=== PATIENT | female | born 1945 | race Caucasian/White ===

== ENCOUNTER 2017-07-26 10:07 | Day surgery (SDC) | payer OTHER ==
[~2017-07-26] VITALS: Ht 172.7 cm; Wt 81.6 kg
[~2017-07-26 10:07] MED LIST: ACETAMINOPHEN 325 MG TAB PO PRN; ASPI325T24 PO; BSS with VANC/TOB/EPI for EYE CASES IR ONE; CALC600T57 PO; CO Q100C10 PO; CORACAP6 PO; CYCLOPENTOLATE 2% OPHTH SOLN 2ML BTL OS ONE; FIBE625T PO; FOLI400T PO; LIDOCAINE 3.5 % 1ML OPHTH TOPICAL GEL OU ONE; MULT1TAB42 PO; OFLOXACIN 0.3 % (OCUFLOX) OPTH SOL 5ML OS ONE; OMEG100011 PO; PHENYLEPHRINE 2.5% OPHTH SOL 2ML OS ONE; PROPARACAINE 0.5% OPHTH SOL 15ML OS PRN; TROPICAMIDE 1% OPHTH SOLN 2ML OS ONE; VITA-122 PO; VITA100072 PO
[2017-07-26] MEDS ORDERED: LR 500 ML IV ONE (10:15)
[2017-07-26] MEDS ORDERED: MIDAZOLAM INJ 2 MG/2 ML VIAL (J2250) As Ordered ONE (12:38)
[2017-07-26] MEDS ORDERED: HEALON DUET (HEALON 10MG/ML 0.55ML & HEALON ENDOCOAT 30MG/ML 0.85ML) As Ordered ONE ×2 (12:53→13:15)
[2017-07-26] MEDS ORDERED: POVIDONE-IODINE 5% OPHTH PREP SOL 30ML As Ordered ONE (12:53)
[2017-07-26] MEDS ORDERED: LIDOCAINE 1% SDV 5 ML VIAL As Ordered ONE (12:54)
[2017-07-26] MEDS ORDERED: AcetaZOLAMIDE 500 MG ER CAP PO ONE (14:00)
[2017-07-26] MEDS ORDERED: TRIMETHOBENZAMIDE 300 MG CAP PO PRN (14:00)
[2017-07-26] MEDS ORDERED: KETOROLAC 0.5% OPHTH SOLN XX ONE (14:00)
[2017-07-26 14:30] VITALS: BP 116/70
--- NOTE | 2017-07-27 10:23 | RO ---
DATE OF PROCEDURE: 07/26/2017 PREOPERATIVE DIAGNOSES: Cataract left eye. Glaucoma left eye. POSTOPERATIVE DIAGNOSES: Cataract left eye. Glaucoma left eye. PROCEDURE: Femtosecond laser with phacoemulsification, intraocular lens implantation, placement of ECP and iStent in the left eye. Intraocular lens power used was Hoya, model 250, power 15.5 diopter. SURGEON: Jerrell Richards MD POWDER PRESS OPERATOR: None. ANESTHESIA: COMPLICATIONS: None. PROCEDURE IN DETAIL: Patient was brought to the operating room, laid in supine position. The eye was prepped and draped in a sterile fashion for ophthalmic surgery and a lid speculum was placed. Patient was brought under the laser and after adequate suction and patient interface placement OCT images were then reviewed and laser was activated. Capsulorhexis lens fragmentation primary, secondary corneal incision and arcuate incisions were made as planned. Suction was then released. Patient was brought to the operating room, laid in supine position. The eye was prepped and draped in a sterile fashion for ophthalmic surgery and the lid speculum was placed. Corneal incisions were opened. Capsulorrhexis removed after placement of the EndoCoat into the anterior chamber. Phacoemulsification was then done in a divide and conquer method, followed by aspiration of the cortical material. Healon was then placed in the capsular bag, intraocular lens inserted. Healon was then placed the in the ciliary sulcus and with the help of the video screen and an EndoProbe ciliary processes were visualized and endocyclophotocoagulation was done at 0.25 mV at 280 degrees with good results noted by the shrinking of the ciliary processes. Healon was then placed into the anterior chamber to visualize the inferonasal trabecular meshwork. Patient's head turned away from the surgeon, microscope turned towards the surgeon under high magnification with the help of the Gonio lens. The iStent was placed and with some difficulty because there was a lot of blood reflux. After this, excess viscoelastic and some heme was aspirated. Wound was hydrated. Lid speculum removed. Patient returned to recovery room in stable condition. Also, with cefuroxime was given.
== END 2017-07-26 14:47 | disposition home or self-care (01) ==
LOC: M SDC 10:07
PROVIDERS: ATTEND Ophthalmology
DX: H26.9 Unspecified cataract (principal); H40.9 Unspecified glaucoma; I48.91 Unspecified atrial fibrillation; N39.0 Urinary tract infection, site not specified; N30.01 Acute cystitis with hematuria; J30.9 Allergic rhinitis, unspecified; E78.5 Hyperlipidemia, unspecified; Z88.0 Allergy status to penicillin; Z79.899 Other long term (current) drug therapy; Z79.82 Long term (current) use of aspirin; Z85.3 Personal history of malignant neoplasm of breast; Z92.21 Personal history of antineoplastic chemotherapy; Z92.3 Personal history of irradiation
CPT/HCPCS: 66711; 66984; C1783; J2250; V2632

== ENCOUNTER → 2018-09-21 | Outpatient (REF) | payer OTHER ==
[2018-09-21 19:19] LABS: AMORPHOUS SEDIMENT LARGE (NEGATIVE); APPEARANCE, URINE CLOUDY (CLEAR); BACTERIA, URINE AUTO NEGATIVE (NEGATIVE); BILIRUBIN, URINE AUTO NEGATIVE (NEGATIVE); BLOOD, URINE BLOOD NEGATIVE (NEGATIVE); COLOR, URINE YELLOW (YELLOW); GLUCOSE, URINE (UA) AUTO NEGATIVE (NEGATIVE); KETONE, URINE AUTO NEGATIVE (NEGATIVE); LEUKOCYTE ESTERASE, URINE AUTO TRACE (NEGATIVE); MUCUS, URINE SMALL (NEGATIVE); NITRITE, URINE AUTO NEGATIVE (NEGATIVE); PROTEIN, URINE AUTO NEGATIVE (NEGATIVE); RBC, URINE AUTO 3 /HPF (0-3); SPECIFIC GRAVITY URINE AUTO 1.014 (1.002-1.035); SQUAMOUS EPITHELIAL CELL UR AU 0 /HPF (0-6); UROBILINOGEN, URINE AUTO 0.2 mg/dL (0.0-2.0); WBC, URINE AUTO 7 /HPF (0-3)
== END ==
LOC: M SMT 17:15
DX: N39.0 Urinary tract infection, site not specified (principal)
CPT/HCPCS: 81001

== ENCOUNTER → 2018-09-27 | Outpatient (CLI) | payer OTHER ==
[~2018-09-27] MED LIST changes: -ACETAMINOPHEN 325 MG TAB PO PRN; -ASPI325T24 PO; +ASPI325T25 PO; -BSS with VANC/TOB/EPI for EYE CASES IR ONE; -CYCLOPENTOLATE 2% OPHTH SOLN 2ML BTL OS ONE; -LIDOCAINE 3.5 % 1ML OPHTH TOPICAL GEL OU ONE; +METO1TAB32 PO; -OFLOXACIN 0.3 % (OCUFLOX) OPTH SOL 5ML OS ONE; -PHENYLEPHRINE 2.5% OPHTH SOL 2ML OS ONE; -PROPARACAINE 0.5% OPHTH SOL 15ML OS PRN; -TROPICAMIDE 1% OPHTH SOLN 2ML OS ONE; +XARE20TA PO
--- NOTE | 2018-09-27 17:58 | REP ---
Clinical: Recurrent urinary tract infection. Technique: Real time banda scale ultrasound examination using curved array transducer. Findings: Bladder is under distended but grossly normal in appearance. The bilateral kidneys are normal in reniform shape and echogenicity without hydronephrosis, nephrolithiasis, obvious cystic or renal mass lesion. Right kidney measures 9.5 x 4.3 x 4.1 cm. Left kidney measures 11.7 x 5.3 x 5.3 cm and partial duplication versus column of Valentin cannot be excluded. Impression: Essentially normal appearance of the bilateral kidneys. Electronically Signed by Jorge Luis Huthcins MD 09/27/2018 05:50 P
== END ==
LOC: M RAD 13:03
PROVIDERS: ATTEND Nurse Practitioner Family
DX: Z87.440 Personal history of urinary (tract) infections (principal)

== ENCOUNTER → 2018-10-13 | Outpatient (REF) | payer MEDICARE ==
[2018-10-13 18:51] LABS: AMORPHOUS SEDIMENT MODERATE (NEGATIVE); APPEARANCE, URINE CLOUDY (CLEAR); BACTERIA, URINE AUTO 1+ (NEGATIVE); BILIRUBIN, URINE AUTO NEGATIVE (NEGATIVE); BLOOD, URINE BLOOD NEGATIVE (NEGATIVE); COLOR, URINE AMBER (YELLOW); GLUCOSE, URINE (UA) AUTO NEGATIVE (NEGATIVE); KETONE, URINE AUTO NEGATIVE (NEGATIVE); LEUKOCYTE ESTERASE, URINE AUTO 1+ (NEGATIVE); MUCUS, URINE SMALL (NEGATIVE); NITRITE, URINE AUTO NEGATIVE (NEGATIVE); PROTEIN, URINE AUTO 1+ mg/dL (NEGATIVE); RBC, URINE AUTO 3 /HPF (0-3); SPECIFIC GRAVITY URINE AUTO 1.023 (1.002-1.035); SQUAMOUS EPITHELIAL CELL UR AU 6 /HPF (0-6); WBC, URINE AUTO 25 /HPF (0-3)
== END ==
LOC: M SMT 17:05
PROVIDERS: ATTEND Nurse Practitioner Family
DX: N39.0 Urinary tract infection, site not specified (principal)

== ENCOUNTER → 2018-10-16 | Outpatient (REF) | payer MEDICARE ==
[2018-10-16 19:22] LABS: APPEARANCE, URINE MANUAL HAZY (CLEAR); COLOR, URINE MANUAL YELLOW (YELLOW)
[2018-10-16 19:23] LABS: PROTEIN, URINE MANUAL NEGATIVE (NEGATIVE)
[2018-10-16 19:24] LABS: BILIRUBIN, URINE MANUAL NEGATIVE (NEGATIVE); BLOOD URINE MANUAL TRACE (NEGATIVE); GLUCOSE, URINE (UA) MANUAL NEGATIVE (NEGATIVE); KETONE, URINE MANUAL NEGATIVE (NEGATIVE); LEUKOCYTE ESTERASE, URINE MAN NEGATIVE (NEGATIVE); NITRITE, URINE MANUAL NEGATIVE (NEGATIVE); RBC, URINE 0-1 /hpf (0-3); SQUAMOUS EPITHELIAL CELL URINE SMALL AMOUNT /hpf (SMALL AMT); UROBILINOGEN, URINE MANUAL NORMAL (NORMAL); WBC, URINE 0-1 /hpf (0-3)
[2018-10-16 19:25] LABS: BACTERIA, URINE LARGE AMOUNT; HYALINE CAST, URINE NONE SEEN /lpf (0-1)
== END ==
LOC: M SMT 16:46
PROVIDERS: ATTEND Nurse Practitioner Family
DX: N39.0 Urinary tract infection, site not specified (principal)

== ENCOUNTER → 2018-12-05 | Outpatient (REF) | payer MEDICARE | LOC: M SFHCADAM 15:27 | PROVIDERS: ATTEND Specialist | DX: Z53.9 Procedure and treatment not carried out, unspecified reason (principal); N39.0 Urinary tract infection, site not specified ==

== ENCOUNTER → 2018-12-06 | Outpatient (REF) | payer MEDICARE ==
[2018-12-06 20:07] LABS: BACTERIA, URINE AUTO 2+ (NEGATIVE); CALCIUM OXALATE CRYSTALS SMALL; MUCUS, URINE SMALL (NEGATIVE); RBC, URINE AUTO 20 /HPF (0-3); SQUAMOUS EPITHELIAL CELL UR AU 2 /HPF (0-6); TRANSITIONAL EPITHELIAL AUTO <1 /HPF; WBC, URINE AUTO TNTC /HPF (0-3)
== END ==
LOC: M SFHCADAM 19:31
PROVIDERS: ATTEND Specialist
DX: N39.0 Urinary tract infection, site not specified (principal)

== ENCOUNTER → 2019-01-05 | Outpatient (REF) | payer MEDICARE | LOC: M SMT 17:04 | PROVIDERS: ATTEND Nurse Practitioner Women's Health | DX: N39.0 Urinary tract infection, site not specified (principal) ==

== ENCOUNTER → 2019-06-29 | Outpatient (CLI) | payer MEDICARE ==
[~2019-06-29] MED LIST changes: +ALBU8.5H INH; +ASPI-255 PO; -ASPI325T25 PO; +ATOR1TAB19 PO; +FLUTISP NARES; +LATA0.0015 OU; +METH-855 PO; +VITA100018 PO; -VITA100072 PO
[2019-06-29 14:08] LABS: CALCIUM LEVEL 9.9 MG/DL (8.8-10.2); CREATININE FOR GFR 1.02 MG/DL (0.55-1.30); GLOMERULAR FILTRATION RATE 56.1 (>39); POTASSIUM SERUM 4.8 MEQ/L (3.5-5.1)
== END ==
LOC: M SMT 10:52
PROVIDERS: ATTEND Specialist
DX: N39.0 Urinary tract infection, site not specified (principal); Q64.31 Congenital bladder neck obstruction
CPT/HCPCS: 36415; 51798; 80048; G0463

== ENCOUNTER → 2019-07-04 | Outpatient (CLI) | payer MEDICARE ==
[~2019-07-04] MED LIST changes: -ALBU8.5H INH; -ATOR1TAB19 PO; -FLUTISP NARES; -LATA0.0015 OU; -METH-855 PO
--- NOTE | 2019-07-05 02:21 | REP ---
Clinical: Recurrent urinary tract infection. Technique: Real time banda scale ultrasound examination using curved array transducer. Findings: Bilateral kidneys are normal in contour, echogenicity, and reniform shape without hydronephrosis, nephrolithiasis, cystic or renal mass lesion. No perinephric fluid collection. Right kidney appears minimally atrophic as compared to the left kidney and measures 9.3 x 3.4 x 3.3 cm. Left kidney measures 11.3 x 4.6 x 4.8 cm. Bladder is under distended and incompletely evaluated. Impression: Mild asymmetric size to the kidneys (left greater than right). Otherwise grossly unremarkable examination. Electronically Signed by Jorge Luis Hutchins MD 07/05/2019 02:13 A
== END ==
LOC: M RAD 15:07
PROVIDERS: ATTEND Specialist
DX: N39.0 Urinary tract infection, site not specified (principal)

== ENCOUNTER 2019-07-18 14:36 | Observation (INO) | payer MEDICARE ==
[~2019-07-18] VITALS: Ht 172.7 cm; Wt 82.4 kg
[2019-07-18] MEDS ORDERED: FLUTISP NARES (14:52)
[2019-07-18] MEDS ORDERED: ALBU8.5H INH (14:52)
[2019-07-18] MEDS ORDERED: LATA0.0015 OU (14:52)
--- NOTE | 2019-07-18 15:26 | REP ---
CT brain without contrast: History: Syncope. No comparison brain CT study. Findings: Preliminary digital fountain brush assembler radiograph is unremarkable. The bony calvarium is intact. No scalp hematoma or skull fracture is seen. There is some vascular calcification in the distal carotid arteries bilaterally. The visualized paranasal sinuses are clear. No intraorbital abnormality is appreciated. There is moderate generalized atrophy. There are areas of periventricular hypointensity visible bilaterally in the supratentorial brain consistent with small vessel atherosclerotic changes. There is no evidence of acute infarct or hemorrhage. No mass, extra-axial fluid collection, or midline shift is seen. Impression: Generalized atrophy, small vessel changes, and vascular calcification. No acute intracranial abnormality. Electronically Signed by Camilo Martínez MD 07/18/2019 03:56 P
--- NOTE | 2019-07-18 15:27 | REP ---
PA and lateral chest: Comparison is 08/05/2015. The lung garcia are clear and unchanged. There is bilateral apical pleural scarring. This is unchanged. Cardiac size is upper normal. There is pectus excavatum with the heart displaced posteriorly in the chest on the lateral view. This is unchanged. The ivanna, mediastinum, skeletal structures are unchanged. Impression: There are chronic stable findings as described. No acute cardiopulmonary changes. Electronically Signed by Devin Gaspar MD 07/18/2019 03:19 P
[2019-07-18 15:34] LABS: BASO # 0.1 10^3/uL (0.0-0.2); BASO % 0.7 % (0.0-1.0); EOS # 0.1 10^3/uL (0.0-0.5); EOS % 1.6 % (0.0-3.0); HEMATOCRIT 39.8 % (36.0-47.0); HEMOGLOBIN 13.3 g/dl (12.0-15.5); LYMPH # 1.1 10^3/uL (1.5-5.0); LYMPH % 16.2 % (24.0-44.0); MEAN CORPUSCULAR HGB CONC 33.4 g/dl (32.0-36.5); MEAN CORPUSCULAR VOLUME 104.7 fl (80.0-96.0); MONO # 0.6 10^3/uL (0.0-0.8); MONO % 7.9 % (0.0-5.0); NEUTROPHILS # 5.1 10^3/uL (1.5-8.5); NEUTROPHILS % 73.2 % (36.0-66.0); PLATELET COUNT, AUTOMATED 263 10^3/uL (150-450); WHITE BLOOD COUNT 6.9 10^3/uL (4.0-10.0)
[2019-07-18 15:57] LABS: INR 1.08; PROTHROMBIN TIME 13.7 SECONDS (11.8-14.0)
[2019-07-18 15:58] LABS: PARTIAL THROMBOPLASTIN TIME 27.7 SECONDS (25.0-38.4)
[2019-07-18 16:06] LABS: BLOOD UREA NITROGEN 23 MG/DL (7-18); CALCIUM LEVEL 9.3 MG/DL (8.8-10.2); CARBON DIOXIDE LEVEL 27 MEQ/L (21-32); CHLORIDE LEVEL 107 MEQ/L (98-107); CK-MB VALUE MASS < 1.0 NG/ML (<3.6); CPK CREATINE PHOSPHOKINASE 48 U/L (26-192); FREE T4 1.09 NG/DL (0.76-1.46); GLOMERULAR FILTRATION RATE > 60.0 (>39); GLUCOSE, FASTING 109 MG/DL (70-100); MAGNESIUM LEVEL 2.4 MG/DL (1.8-2.4); MB/CK RELATIVE INDEX 2.08 (< OR =4); POTASSIUM SERUM 4.6 MEQ/L (3.5-5.1); SODIUM LEVEL 141 MEQ/L (136-145); TROPONIN I < 0.02 NG/ML (< 0.10)
[2019-07-18] MEDS ORDERED: LIDOCAINE W/EPINEPHRINE 1% 20ML VIAL SC ONE (17:00)
[2019-07-18] MEDS ORDERED: ATOR1TAB19 PO (17:42)
[2019-07-18] MEDS ORDERED: METH-855 PO (17:42)
[2019-07-18] MEDS ORDERED: ACETAMINOPHEN TAB 650MG DOSE (2X325MG) PO PRN (17:45)
[2019-07-18] MEDS ORDERED: FLUTICASONE PROP 0.05% NASAL SPRAY 16 GM (FLONASE) NARES PRN (19:30)
[2019-07-18 20:00] VITALS: BP 140/81
[2019-07-18] MEDS ORDERED: METOPROLOL SUCC *XL* 25MG TAB (TopROL *XL*) PO SCH (21:00)
[2019-07-18] MEDS ORDERED: ATORVASTATIN 5MG PER 1/2 TABLET PO SCH (21:00)
[2019-07-18] MEDS ORDERED: LATANOPROST 0.005% OPHTH SOLN 2.5 ML OU SCH (21:00)
[2019-07-18 21:39] VITALS: BP 140/81
[2019-07-18] MEDS: ENOXAPARIN 80 MG/0.8 ML SYRINGE (J1650) SC SCH (21:40)
--- NOTE | 2019-07-18 21:44 | HPEPDOC ---
General Date of Admission Jul 18, 2019 at 14:37 Date of Service: Jul 18, 2019 Chief Complaint The patient is a 74-year-old female admitted with a reason for visit of Syncope. Source: Patient, Family Exam Limitations: No limitations Timing/Duration: Day(s), Resolved prior to arrival Severity: Mild Associated Symptoms: Denies Symptoms History of Present Illness This is a 74-year-old female who sustained a syncopal event in the presence of her family. She apparently began to feel very hot and then sank to her knees. She did not lose full consciousness and she did not hit her head. She denies any chest pain, palpitations, diaphoresis, nausea, or dizziness. She states she once had such a spell in her 20s. Of interest, the patient is followed by a injection molding supervisor in [place]( Dr.Barbara Waldrop [phone]. The patient has a history of atrial fibrillation and she had been placed on anticoagulation with Xarelto. She had been on this for a few months. She stopped the medication a month or so ago because of expense. She has previously been on Coumadin but did not want to start that either. Home Medications Scheduled Atorvastatin Calcium (Atorvastatin Calcium) 10 Mg Tablet, 5 MG PO QHS, (Reported) Calcium Carbonate/Vitamin D3 (Calcium 600-Vit D3 200 Tablet) 1 Tab Tab, 1 TAB PO DAILY, (Reported) Cholecalciferol (Vitamin D3) (Vitamin D3) 1,000 Unit Tab, 1,000 UNIT PO DAILY, (Reported) Latanoprost/Pf (Latanoprost 0.005% Eye Drop) 7.5 Ml Drops, 1 DROP OU QHS, (Reported) Methenamine Hippurate (Methenamine Hippurate) 1 Gm Tablet, 1 GM PO BID, (Reported) Metoprolol Succinate (Metoprolol Succinate) 25 Mg Tab, 25 MG PO QHS, (Reported) Mv-Min/Iron/Folic/Calcium/Vitk (Women's Multivitamin Tablet) 1 Tab Tab, 1 TAB PO DAILY, (Reported) Rivaroxaban (Xarelto) 20 Mg Tab, 20 MG PO DAILY, (Reported) PT HAS NOT HAD IN 1 MONTH DUE TO COST Scheduled PRN Albuterol Sulfate (Albuterol Sulfate Hfa) 8.5 Gm Hfa.aer.ad, 2 PUFFS INH Q4H PRN for SHORTNESS OF BREATH, (Reported) Fluticasone Propionate (Fluticasone Propionate) 16 Gm [place].susp, 2 SPRAYS NARES DAILY PRN for NASAL CONGESTION, (Reported) Allergies Coded Allergies: Penicillins (Verified Allergy, Unknown, 07/18/19) Past Medical History Medical History Chronic atrial fibrillation, polymyalgia rheumatica, dyslipidemia Surgical History Surgical history includes appendectomy, left lumpectomy with node dissection for breast cancer--this was then treated with chemotherapy and radiation, nonsurgical right arm fracture repair Family History There is family history of stroke, heart disease and Unspecified cancer Social History * Smoker: former Smoker (patient stopped smoking at the age of 28) Alcohol: Denies (the patient stopped alcohol use at the age of 28) Drugs: denies The patient is retired from [employer]. A-FIB/CHADSVASC A-FIB History Current/History of A-Fib/PAF?: Yes Current PO Anticoag Therapy: No Age/Risk Factor Scoring CHADSVASC: CHADSVASC Response (Comments) Value Age Risk Factor Age 65-74 years old 1 Gender Risk Factor Female 1 Hx of CHF No 0 Hx of HTN Yes 1 Hx of Stroke/TIA/or VTE No 0 Hx of Diabetes No 0 Hx of Vascular Disease No 0 Total 3 Treatment Treatment ordered: Heparin IV bridge Therapy Reason Anticoagulant not given: Patient refusal Review of Systems Other systems Review of 10 systems is otherwise negative except as stated in the brief presentation Physical Examination General Exam: Positive: Alert, No Acute Distress Eye Exam: Positive: PERRLA, Conjunctiva & lids normal, EOMI; Negative: Sclera icteric ENT Exam: Positive: Atraumatic, Mucous membr. moist/pink, Pharynx Normal Neck Exam: Positive: Supple; Negative: JVD, thyromegaly Chest Exam: Positive: Clear to auscultation, Normal air movement Heart Exam: Positive: Irregular Rhythm Telemetry: Positive: Atrial fibrillation (rate is controlled) Abdomen Exam: Positive: Normal bowel sounds, Soft; Negative: Tenderness, Hepatospenomegaly Extremity Exam: Positive: Normal pulses; Negative: Clubbing, Cyanosis, Edema Skin Exam: Positive: Nl turgor and temperature; Negative: Breakdown, Lesion Neuro Exam: Positive: Normal Gait, Normal Speech, Cranial Nerves 3-12 NL, Reflexes 2+ Psych Exam: Positive: Mental status NL, Mood NL, Oriented x 3 Vital Signs Vital Signs Date Time Temp Pulse Resp B/P (MAP) Pulse Ox O2 Delivery O2 Flow Rate FiO2 07/18/19 20:00 150/65 (93) 07/18/19 20:00 97.8 70 18 97 07/18/19 14:43 Room Air Laboratory Data Labs 24H Laboratory Tests 2 07/18/19 15:19: Immature Granulocyte % (Auto) 0.4, White Blood Count 6.9, Red Blood Count 3.80L, Hemoglobin 13.3, Hematocrit 39.8, Mean Corpuscular Volume 104.7H, Mean Corpuscular Hemoglobin 35.0H, Mean Corpuscular Hemoglobin Concent 33.4, Red Cell Distribution Width 12.5, Platelet Count 263, Neutrophils (%) (Auto) 73.2H, Lymphocytes (%) (Auto) 16.2L, Monocytes (%) (Auto) 7.9H, Eosinophils (%) (Auto) 1.6, Basophils (%) (Auto) 0.7, Neutrophils # (Auto) 5.1, Lymphocytes # (Auto) 1.1L, Monocytes # (Auto) 0.6, Eosinophils # (Auto) 0.1, Basophils # (Auto) 0.1, Nucleated Red Blood Cells % (auto) 0.0, Prothrombin Time 13.7, Prothromb Time International Ratio 1.08, Activated Partial Thromboplast Time 27.7, Anion Gap 7L, Glomerular Filtration Rate > 60.0, Blood Urea Nitrogen 23H, Creatinine 0.90, Sodium Level 141, Potassium Level 4.6, Chloride Level 107, Carbon Dioxide Level 27, Calcium Level 9.3, Total Creatine Kinase 48, Magnesium Level 2.4, Creatine Kinase MB < 1.0, Creatine Kinase MB Relative Index 2.08, Troponin I < 0.02, Thyr oid Stimulating Hormone (TSH) 1.770, Free Thyroxine 1.09 CBC/BMP Laboratory Tests 07/18/19 15:19 Red Blood Count 3.80 L, Mean Corpuscular Volume 104.7 H, Mean Corpuscular Hemoglobin 35.0 H, Mean Corpuscular Hemoglobin Concent 33.4, Red Cell Distribution Width 12.5, Neutrophils (%) (Auto) 73.2 H, Lymphocytes (%) (Auto) 16.2 L, Monocytes (%) (Auto) 7.9 H, Eosinophils (%) (Auto) 1.6, Basophils (%) (Auto) 0.7, Neutrophils # (Auto) 5.1, Lymphocytes # (Auto) 1.1 L, Monocytes # (A uto) 0.6, Eosinophils # (Auto) 0.1, Basophils # (Auto) 0.1, Calcium Level 9.3, Total Creatine Kinase 48 Assessment/Plan 1. Syncope. This was of extremely short duration. Associated symptoms are fully resolved and not anticipated to recur. Head CT was negative for any acute pathology. We will monitor her overnight on telemetry for possible dysrhythmia. Should also consider that she may have developed acute weakness due to her polymyalgia rheumatica. 2. Chronic atrial fibrillation. Patient remains in controlled rate. It is concerning that this event happened after she stopped her anticoagulation. Plans are to contact her injection molding supervisor to discuss acceptable alternative therapy. The patient does not want to take Coumadin. The patient is placed on observation status as we anticipate it will take less than 2 midnights to determine suitable management. Plan / VTE VTE Prophylaxis Ordered?: Yes (patient is currently on treatment dose Lovenox while we determine what her anticoagulation is to be) Plan Diet: Continue Current Activity: Continue Current Diagnostics: Repeat Labs in AM Anticipated Discharge: Home Advanced Directives: Health Care Proxy (HCP) (the patient's son is designated as her healthcare proxy. She is currently full CODE STATUS) TEETEE GORDON MD Jul 18, 2019 21:44
[2019-07-18] MEDS ORDERED: SLF 3 ML SYR IV PRN (22:15)
[2019-07-19] VITALS: BP 152/88
[2019-07-19 04:00] VITALS: BP 137/76
[2019-07-19] MEDS: SLF 3 ML SYR IV SCH ×2 (05:00→11:25)
[2019-07-19 05:27] LABS: HEMATOCRIT 39.3 % (36.0-47.0); HEMOGLOBIN 13.1 g/dl (12.0-15.5); MEAN CORPUSCULAR HEMOGLOBIN 34.7 pg (27.0-33.0); MEAN CORPUSCULAR HGB CONC 33.3 g/dl (32.0-36.5); PLATELET COUNT, AUTOMATED 244 10^3/uL (150-450); RED BLOOD COUNT 3.78 10^6/uL (4.00-5.40); WHITE BLOOD COUNT 7.5 10^3/uL (4.0-10.0)
[2019-07-19 05:48] LABS: BLOOD UREA NITROGEN 22 MG/DL (7-18); CALCIUM LEVEL 8.7 MG/DL (8.8-10.2); CARBON DIOXIDE LEVEL 24 MEQ/L (21-32); CHLORIDE LEVEL 109 MEQ/L (98-107); CREATININE FOR GFR 0.83 MG/DL (0.55-1.30); GLOMERULAR FILTRATION RATE > 60.0 (>39); GLUCOSE, FASTING 93 MG/DL (70-100); POTASSIUM SERUM 4.6 MEQ/L (3.5-5.1); SODIUM LEVEL 138 MEQ/L (136-145)
[2019-07-19 08:00] VITALS: BP 126/64
[2019-07-19] MEDS: ENOXAPARIN 80 MG/0.8 ML SYRINGE (J1650) SC SCH (08:36)
[2019-07-19] MEDS ORDERED: VITAMIN D 1,000 INTERNATIONAL UNITS TABLET PO SCH (09:00)
[2019-07-19] MEDS ORDERED: ASPIRIN 81 MG ENTERIC TAB PO SCH (09:00)
--- NOTE | 2019-07-19 10:47 | ECGEPIP ---
[facility] - ED Test Date: 2019-07-18 Pat Name: NIESHA MORALES Department: Room: - Gender: Female Inletter: VIC : 1945 Requested By: CALISTA Pederson Order Number: [id number] Reading MD: Mary Wisdom Measurements Intervals [place] Rate: 63 P: UT: 0 QRS: -26 QRSD: 98 T: 58 QT: 416 QTc: 427 Interpretive Statements ATRIAL FIBRILLATION BORDERLINE LEFT AXIS DEVIATION INCOMPLETE RIGHT BUNDLE BRANCH BLOCK MINIMAL ST DEPRESSION ABNORMAL RHYTHM ECG NO PRIOR Electronically Signed on 07-19-2019 10:47:40 EDT by Mary Wisdom
[2019-07-19 12:00] VITALS: BP_SYST 133; BP_SYST 150; BP_DIAS 64; BP_DIAS 98
[2019-07-19] MEDS ORDERED: XARE20TA PO (12:10)
== END 2019-07-19 15:25 | disposition home or self-care (01) ==
LOC: EDBD 14:36 → M ED 14:36 → M ED INP 14:37 → M PCU 20:10
PROVIDERS: ADMIT Internal Medicine; ATTEND Internal Medicine
DX: R55 Syncope and collapse (principal); I48.20 Chronic atrial fibrillation, unspecified; I10 Essential (primary) hypertension; E78.49 Other hyperlipidemia; Z85.3 Personal history of malignant neoplasm of breast; Z88.0 Allergy status to penicillin; Z87.891 Personal history of nicotine dependence; Z79.899 Other long term (current) drug therapy
CPT/HCPCS: 36415; 70450; 71046; 80048; 82550; 82553; 83735; 84439; 84443; 84484; 85025; 85027; 85610; 85730; 93005; 93041; 94760; 96372; 97161; 99285; G0378; J1650

== ENCOUNTER → 2019-10-15 | Outpatient (REF) | payer MEDICARE ==
[~2019-10-15] MED LIST changes: +ALBU8.5H INH; +ATOR1TAB19 PO; +FLUTISP NARES; +LATA0.0015 OU; +METH-855 PO
== END ==
LOC: M LABDRAW1 15:00
PROVIDERS: ATTEND Internal Medicine Pulmonary Disease
DX: R91.8 Other nonspecific abnormal finding of lung field (principal)

== ENCOUNTER → 2020-07-29 | Outpatient (REF) | payer MEDICARE ==
[2020-07-29 14:29] LABS: APPEARANCE, URINE CLEAR (CLEAR); BACTERIA, URINE AUTO NEGATIVE (NEGATIVE); BILIRUBIN, URINE AUTO NEGATIVE (NEGATIVE); BLOOD, URINE BLOOD NEGATIVE (NEGATIVE); COLOR, URINE YELLOW (YELLOW); GLUCOSE, URINE (UA) AUTO NEGATIVE (NEGATIVE); KETONE, URINE AUTO NEGATIVE (NEGATIVE); LEUKOCYTE ESTERASE, URINE AUTO TRACE (NEGATIVE); MUCUS, URINE SMALL (NEGATIVE); NITRITE, URINE AUTO NEGATIVE (NEGATIVE); PROTEIN, URINE AUTO NEGATIVE (NEGATIVE); RBC, URINE AUTO 2 /HPF (0-3); SPECIFIC GRAVITY URINE AUTO 1.013 (1.002-1.035); SQUAMOUS EPITHELIAL CELL UR AU 0 /HPF (0-6); UROBILINOGEN, URINE AUTO 0.2 mg/dL (0.0-2.0); WBC, URINE AUTO 32 /HPF (0-3)
== END ==
LOC: M SMT 13:32
PROVIDERS: ATTEND Nurse Practitioner Women's Health
DX: R30.0 Dysuria (principal)
CPT/HCPCS: 81001; 87088; 87186; G0463

== ENCOUNTER → 2021-03-23 | Outpatient (REF) | payer MEDICARE ==
[~2021-03-23] MED LIST changes: -FOLI400T PO; +FOLI400T13 PO
== END ==
LOC: M SFHCRHEU 10:11
PROVIDERS: ATTEND Internal Medicine
DX: M79.10 Myalgia, unspecified site (principal); M85.80 Other specified disorders of bone density and structure, unspecified site; R79.82 Elevated C-reactive protein (CRP)

== ENCOUNTER 2023-04-30 07:35 | Inpatient (IN) | payer MEDICARE ==
[~2023-04-30] VITALS: Ht 172.7 cm; Wt 86.8 kg
[~2023-04-30 07:35] MED LIST changes: +FLUT50SP17 NARES; -FLUTISP NARES
[2023-04-30] MEDS ORDERED: NS 1,000 ML IV SCH (08:00)
[2023-04-30 08:33] LABS: VENOUS BASE EXCESS -0.6 (-2.0-2.0); VENOUS HCO3 21.2 MMOL/L (23.0-27.0); VENOUS O2 SATURATION 98.7 % (60.0-80.0); VENOUS PARTIAL PRESSURE CO2 27.9 mmHg (38.0-50.0); VENOUS PARTIAL PRESSURE O2 135.3 mmHg (30.0-50.0); VENOUS PH 7.498 UNITS (7.330-7.430)
[2023-04-30 08:38] LABS: BASO # 0.1 10^3/uL (0.0-0.2); BASO % 0.8 % (0.0-1.0); EOS # 0.1 10^3/uL (0.0-0.5); EOS % 1.4 % (0.0-3.0); HEMATOCRIT 44.8 % (36.0-47.0); HEMOGLOBIN 14.2 g/dl (12.0-15.5); LYMPH # 1.5 10^3/uL (1.5-5.0); LYMPH % 15.8 % (24.0-44.0); MEAN CORPUSCULAR HEMOGLOBIN 33.7 pg (27.0-33.0); MEAN CORPUSCULAR HGB CONC 31.7 g/dl (32.0-36.5); MEAN CORPUSCULAR VOLUME 106.4 fl (80.0-96.0); MONO # 0.8 10^3/uL (0.0-0.8); MONO % 7.8 % (2.0-8.0); NEUTROPHILS # 7.1 10^3/uL (1.5-8.5); NEUTROPHILS % 73.8 % (36.0-66.0); PLATELET COUNT, AUTOMATED 225 10^3/uL (150-450); RED BLOOD COUNT 4.21 10^6/uL (4.00-5.40); WHITE BLOOD COUNT 9.6 10^3/uL (4.0-10.0)
[2023-04-30 09:42] LABS: ALBUMIN 3.3 G/DL (3.2-5.2); ALKALINE PHOSPHATASE 88 U/L (46-116); ALT/SGPT 46 U/L (7.0-40); AST/SGOT 47 U/L (<34); BILIRUBIN,DIRECT 0.2 MG/DL (<0.4); BILIRUBIN,TOTAL 0.6 MG/DL (0.3-1.2); BLOOD UREA NITROGEN 20 MG/DL (9-23); CALCIUM LEVEL 9.4 MG/DL (8.3-10.6); CARBON DIOXIDE LEVEL 25 MMOL/L (20-31); CHLORIDE LEVEL 101 MMOL/L (98-107); CREATININE FOR GFR 0.69 MG/DL (0.55-1.30); GLOMERULAR FILTRATION RATE > 60.0 (>32); GLUCOSE, FASTING 127 MG/DL (74-106); POTASSIUM SERUM 4.4 MMOL/L (3.5-5.1); SODIUM LEVEL 134 MMOL/L (136-145); TOTAL PROTEIN 7.1 G/DL (5.7-8.2)
[2023-04-30 09:44] LABS: OSMOLALITY SERUM 286 MOSM/KG (280-301); THYROID STIMULATING HORMONE 1.965 uIU/ML (0.55-4.78)
[2023-04-30] MEDS ORDERED: MED REC IN PROGRESS XX SCH (11:20)
[2023-04-30] MEDS ORDERED: METO1TAB32 PO (11:46)
[2023-04-30 12:00] VITALS: BP 161/74; O2SAT 96
[2023-04-30] MEDS ORDERED: HOME MED LIST COMPLETE! XX SCH (12:20)
[2023-04-30] MEDS ORDERED: ASPIRIN 81MG CHEW TABLET PO ONE (13:10)
[2023-04-30] MEDS: MIRALAX *UNIT DOSE* 17GM PACKET PO SCH (13:50)
[2023-04-30 14:00] VITALS: BP_SYST 106; BP_SYST 160; BP_DIAS 72; TEMP 99.6; O2SAT 96
[2023-04-30 16:20] VITALS: BP 159/77; TEMP 99; O2SAT 97
[2023-04-30] MEDS ORDERED: QUEtiapine FUMARATE 12.5 MG HALF-TAB PO PRN (20:00)
[2023-04-30 20:09] VITALS: BP 144/64; TEMP 97.8; O2SAT 96
[2023-04-30] MEDS: ATORVASTATIN 20 MG TAB PO SCH (20:34)
[2023-04-30] MEDS: APIXABAN 2.5 MG TAB (ELIQUIS) PO SCH (20:34)
[2023-04-30] MEDS: DOCUSATE SODIUM 100MG CAPSULE PO SCH (20:34)
[2023-04-30] MEDS: SENNA 8.6 MG TAB (SENOKOT) PO SCH (20:34)
[2023-04-30] MEDS ORDERED: ATORVASTATIN 20 MG TAB PO SCH (21:00)
[2023-05-01] VITALS (7 sets, daily range): BP systolic 111–152; BP diastolic 60–90; TEMP 96.2–97.8; O2SAT 95–98
[2023-05-01 06:18] LABS: BASO # 0.1 10^3/uL (0.0-0.2); BASO % 0.6 % (0.0-1.0); EOS # 0.3 10^3/uL (0.0-0.5); EOS % 2.8 % (0.0-3.0); HEMATOCRIT 38.3 % (36.0-47.0); HEMOGLOBIN 12.8 g/dl (12.0-15.5); LYMPH # 1.4 10^3/uL (1.5-5.0); LYMPH % 16.1 % (24.0-44.0); MEAN CORPUSCULAR HEMOGLOBIN 33.9 pg (27.0-33.0); MEAN CORPUSCULAR HGB CONC 33.4 g/dl (32.0-36.5); MEAN CORPUSCULAR VOLUME 101.3 fl (80.0-96.0); MONO # 0.8 10^3/uL (0.0-0.8); MONO % 9.4 % (2.0-8.0); NEUTROPHILS # 6.3 10^3/uL (1.5-8.5); NEUTROPHILS % 70.6 % (36.0-66.0); PLATELET COUNT, AUTOMATED 224 10^3/uL (150-450); RED BLOOD COUNT 3.78 10^6/uL (4.00-5.40); WHITE BLOOD COUNT 8.9 10^3/uL (4.0-10.0)
[2023-05-01 06:30] LABS: BLOOD UREA NITROGEN 16 MG/DL (9-23); CALCIUM LEVEL 8.6 MG/DL (8.3-10.6); CARBON DIOXIDE LEVEL 24 MMOL/L (20-31); CHLORIDE LEVEL 105 MMOL/L (98-107); CREATININE FOR GFR 0.67 MG/DL (0.55-1.30); GLOMERULAR FILTRATION RATE > 60.0 (>32); GLUCOSE, FASTING 120 MG/DL (74-106); POTASSIUM SERUM 4.1 MMOL/L (3.5-5.1); SODIUM LEVEL 137 MMOL/L (136-145)
[2023-05-01] MEDS: SENNA 8.6 MG TAB (SENOKOT) PO SCH ×2 (09:00→20:25)
[2023-05-01] MEDS: MIRALAX *UNIT DOSE* 17GM PACKET PO SCH (09:00)
[2023-05-01] MEDS: APIXABAN 2.5 MG TAB (ELIQUIS) PO SCH ×2 (09:03→20:44)
[2023-05-01] MEDS: ASPIRIN 81MG ENTERIC TABLET PO SCH (09:03)
[2023-05-01] MEDS: DOCUSATE SODIUM 100MG CAPSULE PO SCH ×2 (09:03→20:24)
[2023-05-01] MEDS: ATORVASTATIN 20 MG TAB PO SCH (20:45)
[2023-05-02 03:35] VITALS: BP 141/77; TEMP 96.5; O2SAT 96
[2023-05-02 05:11] LABS: BASO # 0.1 10^3/uL (0.0-0.2); BASO % 0.6 % (0.0-1.0); EOS # 0.2 10^3/uL (0.0-0.5); EOS % 2.6 % (0.0-3.0); HEMATOCRIT 38.2 % (36.0-47.0); HEMOGLOBIN 12.5 g/dl (12.0-15.5); LYMPH # 1.7 10^3/uL (1.5-5.0); MEAN CORPUSCULAR HEMOGLOBIN 33.5 pg (27.0-33.0); MEAN CORPUSCULAR HGB CONC 32.7 g/dl (32.0-36.5); MEAN CORPUSCULAR VOLUME 102.4 fl (80.0-96.0); MONO # 0.8 10^3/uL (0.0-0.8); MONO % 8.5 % (2.0-8.0); NEUTROPHILS # 6.6 10^3/uL (1.5-8.5); NEUTROPHILS % 69.8 % (36.0-66.0); PLATELET COUNT, AUTOMATED 235 10^3/uL (150-450); RED BLOOD COUNT 3.73 10^6/uL (4.00-5.40); WHITE BLOOD COUNT 9.4 10^3/uL (4.0-10.0)
[2023-05-02 05:24] LABS: BLOOD UREA NITROGEN 19 MG/DL (9-23); CALCIUM LEVEL 8.4 MG/DL (8.3-10.6); CARBON DIOXIDE LEVEL 23 MMOL/L (20-31); CHLORIDE LEVEL 104 MMOL/L (98-107); CREATININE FOR GFR 0.83 MG/DL (0.55-1.30); GLOMERULAR FILTRATION RATE > 60.0 (>32); GLUCOSE, FASTING 111 MG/DL (74-106); POTASSIUM SERUM 4.2 MMOL/L (3.5-5.1); SODIUM LEVEL 136 MMOL/L (136-145)
[2023-05-02 07:54] LABS: INR 1.16
[2023-05-02 07:55] LABS: PARTIAL THROMBOPLASTIN TIME 31.7 SECONDS (24.8-34.2)
[2023-05-02 08:00] VITALS: BP 138/88; TEMP 97.2; O2SAT 97
[2023-05-02] MEDS: MIRALAX *UNIT DOSE* 17GM PACKET PO SCH (09:00)
[2023-05-02] MEDS: SENNA 8.6 MG TAB (SENOKOT) PO SCH (09:13)
[2023-05-02] MEDS: ASPIRIN 81MG ENTERIC TABLET PO SCH (09:13)
[2023-05-02] MEDS: DOCUSATE SODIUM 100MG CAPSULE PO SCH (09:13)
[2023-05-02] MEDS: APIXABAN 5 MG TAB (ELIQUIS) PO SCH ×2 (09:14→20:10)
[2023-05-02] MEDS: LevoFLOXacin 750 MG TABLET PO SCH (10:32)
[2023-05-02] MEDS: METOPROLOL TART 12.5 MG PER 1/2 TAB PO SCH ×2 (10:32→20:11)
[2023-05-02 12:00] VITALS: BP 130/86; TEMP 97; O2SAT 97
[2023-05-02 19:19] VITALS: BP 143/75; TEMP 97.6; O2SAT 96
[2023-05-02] MEDS: ATORVASTATIN 20 MG TAB PO SCH (20:10)
[2023-05-02] MEDS: SENOKOT S TAB PO SCH (20:11)
[2023-05-02 20:34] VITALS: BP 136/72; TEMP 97.9; O2SAT 96
[2023-05-03] MEDS: LevoFLOXacin 750 MG TABLET PO SCH (05:03)
[2023-05-03 06:00] VITALS: BP 160/71; TEMP 97.7; O2SAT 92
[2023-05-03 06:38] LABS: BASO # 0.1 10^3/uL (0.0-0.2); BASO % 0.7 % (0.0-1.0); EOS # 0.3 10^3/uL (0.0-0.5); EOS % 2.8 % (0.0-3.0); HEMATOCRIT 38.8 % (36.0-47.0); HEMOGLOBIN 12.8 g/dl (12.0-15.5); LYMPH # 1.6 10^3/uL (1.5-5.0); LYMPH % 16.5 % (24.0-44.0); MEAN CORPUSCULAR HEMOGLOBIN 33.3 pg (27.0-33.0); MONO # 0.9 10^3/uL (0.0-0.8); MONO % 8.7 % (2.0-8.0); NEUTROPHILS # 6.9 10^3/uL (1.5-8.5); NEUTROPHILS % 70.7 % (36.0-66.0); PLATELET COUNT, AUTOMATED 260 10^3/uL (150-450); RED BLOOD COUNT 3.84 10^6/uL (4.00-5.40); WHITE BLOOD COUNT 9.7 10^3/uL (4.0-10.0)
[2023-05-03 06:57] LABS: BLOOD UREA NITROGEN 18 MG/DL (9-23); CALCIUM LEVEL 8.9 MG/DL (8.3-10.6); CARBON DIOXIDE LEVEL 24 MMOL/L (20-31); CHLORIDE LEVEL 103 MMOL/L (98-107); CREATININE FOR GFR 0.77 MG/DL (0.55-1.30); GLOMERULAR FILTRATION RATE > 60.0 (>32); GLUCOSE, FASTING 110 MG/DL (74-106); POTASSIUM SERUM 4.3 MMOL/L (3.5-5.1); SODIUM LEVEL 136 MMOL/L (136-145)
[2023-05-03 08:28] VITALS: BP 116/74
[2023-05-03] MEDS: METOPROLOL TART 12.5 MG PER 1/2 TAB PO SCH ×2 (08:33→21:41)
[2023-05-03] MEDS: APIXABAN 5 MG TAB (ELIQUIS) PO SCH ×2 (08:33→21:41)
[2023-05-03] MEDS: ASPIRIN 81MG ENTERIC TABLET PO SCH (08:33)
[2023-05-03] MEDS: SENOKOT S TAB PO SCH ×2 (08:33→21:42)
[2023-05-03] MEDS ORDERED: MIRALAX *UNIT DOSE* 17GM PACKET PO PRN (09:00)
[2023-05-03 14:00] VITALS: BP 134/67; TEMP 97.9; O2SAT 96
[2023-05-03 20:00] VITALS: BP 131/66; TEMP 97.7; O2SAT 96
[2023-05-03] MEDS: ATORVASTATIN 20 MG TAB PO SCH (21:40)
[2023-05-03] MEDS: LATANOPROST 0.005% OPHTH SOLN 2.5 ML OU SCH (21:41)
[2023-05-03] MEDS: ACETAMINOPHEN TAB 650MG DOSE (2X325MG) PO PRN (21:41)
[2023-05-04 04:00] VITALS: BP 111/56; TEMP 97.7; O2SAT 95
[2023-05-04] MEDS: LevoFLOXacin 750 MG TABLET PO SCH (05:50)
[2023-05-04 05:52] LABS: BASO # 0.1 10^3/uL (0.0-0.2); BASO % 0.6 % (0.0-1.0); EOS # 0.2 10^3/uL (0.0-0.5); EOS % 2.4 % (0.0-3.0); HEMOGLOBIN 13.3 g/dl (12.0-15.5); LYMPH # 1.7 10^3/uL (1.5-5.0); LYMPH % 17.1 % (24.0-44.0); MEAN CORPUSCULAR HEMOGLOBIN 33.9 pg (27.0-33.0); MEAN CORPUSCULAR HGB CONC 33.3 g/dl (32.0-36.5); MONO # 0.9 10^3/uL (0.0-0.8); PLATELET COUNT, AUTOMATED 255 10^3/uL (150-450); RED BLOOD COUNT 3.92 10^6/uL (4.00-5.40)
[2023-05-04 06:13] LABS: BLOOD UREA NITROGEN 20 MG/DL (9-23); CALCIUM LEVEL 9.3 MG/DL (8.3-10.6); CARBON DIOXIDE LEVEL 24 MMOL/L (20-31); CHLORIDE LEVEL 102 MMOL/L (98-107); CREATININE FOR GFR 0.78 MG/DL (0.55-1.30); GLOMERULAR FILTRATION RATE > 60.0 (>32); GLUCOSE, FASTING 105 MG/DL (74-106); POTASSIUM SERUM 4.3 MMOL/L (3.5-5.1); SODIUM LEVEL 136 MMOL/L (136-145)
[2023-05-04] MEDS: APIXABAN 5 MG TAB (ELIQUIS) PO SCH ×2 (08:25→22:40)
[2023-05-04] MEDS: ASPIRIN 81MG ENTERIC TABLET PO SCH (08:25)
[2023-05-04] MEDS: SENOKOT S TAB PO SCH ×2 (08:26→22:40)
[2023-05-04] MEDS: METOPROLOL TART 12.5 MG PER 1/2 TAB PO SCH ×2 (08:26→22:39)
[2023-05-04 14:00] VITALS: BP 108/57; TEMP 97.9; O2SAT 98
[2023-05-04 20:00] VITALS: BP 109/78; TEMP 98.1; O2SAT 94
[2023-05-04] MEDS: ATORVASTATIN 20 MG TAB PO SCH (22:38)
[2023-05-04] MEDS: LATANOPROST 0.005% OPHTH SOLN 2.5 ML OU SCH (22:40)
[2023-05-04] MEDS: ACETAMINOPHEN TAB 650MG DOSE (2X325MG) PO PRN (22:46)
[2023-05-05 05:56] LABS: BASO # 0.1 10^3/uL (0.0-0.2); BASO % 0.9 % (0.0-1.0); EOS # 0.2 10^3/uL (0.0-0.5); EOS % 2.4 % (0.0-3.0); HEMATOCRIT 39.9 % (36.0-47.0); HEMOGLOBIN 13.3 g/dl (12.0-15.5); LYMPH # 1.8 10^3/uL (1.5-5.0); MEAN CORPUSCULAR HGB CONC 33.3 g/dl (32.0-36.5); MONO # 0.8 10^3/uL (0.0-0.8); NEUTROPHILS # 6.1 10^3/uL (1.5-8.5); NEUTROPHILS % 66.7 % (36.0-66.0); PLATELET COUNT, AUTOMATED 243 10^3/uL (150-450); RED BLOOD COUNT 3.91 10^6/uL (4.00-5.40); WHITE BLOOD COUNT 9.1 10^3/uL (4.0-10.0)
[2023-05-05 06:00] VITALS: BP 122/54; TEMP 97.9; O2SAT 96
[2023-05-05 06:28] LABS: BLOOD UREA NITROGEN 26 MG/DL (9-23); CALCIUM LEVEL 8.9 MG/DL (8.3-10.6); CARBON DIOXIDE LEVEL 24 MMOL/L (20-31); CHLORIDE LEVEL 104 MMOL/L (98-107); CREATININE FOR GFR 0.85 MG/DL (0.55-1.30); GLOMERULAR FILTRATION RATE > 60.0 (>32); GLUCOSE, FASTING 103 MG/DL (74-106); POTASSIUM SERUM 4.3 MMOL/L (3.5-5.1); SODIUM LEVEL 137 MMOL/L (136-145)
[2023-05-05] MEDS: LevoFLOXacin 750 MG TABLET PO SCH (06:52)
[2023-05-05] MEDS: METOPROLOL TART 12.5 MG PER 1/2 TAB PO SCH ×2 (08:13→20:46)
[2023-05-05] MEDS: ASPIRIN 81MG ENTERIC TABLET PO SCH (08:13)
[2023-05-05] MEDS: SENOKOT S TAB PO SCH ×2 (08:13→20:46)
[2023-05-05] MEDS: APIXABAN 5 MG TAB (ELIQUIS) PO SCH ×2 (08:13→20:46)
[2023-05-05 14:00] VITALS: BP 119/55; TEMP 97.9; O2SAT 98
[2023-05-05 20:00] VITALS: BP 122/80; TEMP 97.9; O2SAT 100
[2023-05-05] MEDS: ATORVASTATIN 20 MG TAB PO SCH (20:45)
[2023-05-05] MEDS: LATANOPROST 0.005% OPHTH SOLN 2.5 ML OU SCH (20:45)
[2023-05-06 05:35] LABS: BASO # 0.1 10^3/uL (0.0-0.2); BASO % 0.6 % (0.0-1.0); EOS # 0.2 10^3/uL (0.0-0.5); EOS % 1.9 % (0.0-3.0); HEMATOCRIT 38.5 % (36.0-47.0); HEMOGLOBIN 12.9 g/dl (12.0-15.5); LYMPH # 1.7 10^3/uL (1.5-5.0); LYMPH % 17.1 % (24.0-44.0); MEAN CORPUSCULAR HEMOGLOBIN 33.9 pg (27.0-33.0); MEAN CORPUSCULAR HGB CONC 33.5 g/dl (32.0-36.5); MEAN CORPUSCULAR VOLUME 101.3 fl (80.0-96.0); MONO # 0.8 10^3/uL (0.0-0.8); MONO % 8.4 % (2.0-8.0); NEUTROPHILS % 71.2 % (36.0-66.0); PLATELET COUNT, AUTOMATED 263 10^3/uL (150-450); WHITE BLOOD COUNT 9.9 10^3/uL (4.0-10.0)
[2023-05-06 06:00] VITALS: BP 110/50; TEMP 97.7; O2SAT 95
[2023-05-06 06:04] LABS: BLOOD UREA NITROGEN 29 MG/DL (9-23); CARBON DIOXIDE LEVEL 24 MMOL/L (20-31); CHLORIDE LEVEL 104 MMOL/L (98-107); CREATININE FOR GFR 0.81 MG/DL (0.55-1.30); GLOMERULAR FILTRATION RATE > 60.0 (>32); GLUCOSE, FASTING 102 MG/DL (74-106); POTASSIUM SERUM 4.3 MMOL/L (3.5-5.1); SODIUM LEVEL 136 MMOL/L (136-145)
[2023-05-06] MEDS: ASPIRIN 81MG ENTERIC TABLET PO SCH (09:28)
[2023-05-06] MEDS: METOPROLOL TART 12.5 MG PER 1/2 TAB PO SCH ×2 (09:28→21:43)
[2023-05-06] MEDS: APIXABAN 5 MG TAB (ELIQUIS) PO SCH ×2 (09:29→21:43)
[2023-05-06] MEDS: SENOKOT S TAB PO SCH ×2 (09:29→21:43)
[2023-05-06 14:00] VITALS: BP 109/65; TEMP 97.9; O2SAT 96
[2023-05-06 20:25] VITALS: BP 102/56; TEMP 97.9; O2SAT 96
[2023-05-06] MEDS: LATANOPROST 0.005% OPHTH SOLN 2.5 ML OU SCH (21:00)
[2023-05-06 21:39] VITALS: BP 132/60
[2023-05-06] MEDS: ATORVASTATIN 20 MG TAB PO SCH (21:43)
[2023-05-07 06:00] VITALS: BP 107/54; TEMP 98.4; O2SAT 97
[2023-05-07 06:23] LABS: BASO # 0.1 10^3/uL (0.0-0.2); BASO % 0.7 % (0.0-1.0); EOS # 0.2 10^3/uL (0.0-0.5); EOS % 1.9 % (0.0-3.0); HEMATOCRIT 38.2 % (36.0-47.0); HEMOGLOBIN 12.6 g/dl (12.0-15.5); LYMPH # 1.6 10^3/uL (1.5-5.0); MEAN CORPUSCULAR HEMOGLOBIN 33.4 pg (27.0-33.0); MEAN CORPUSCULAR VOLUME 101.3 fl (80.0-96.0); MONO # 0.8 10^3/uL (0.0-0.8); MONO % 8.2 % (2.0-8.0); NEUTROPHILS # 6.8 10^3/uL (1.5-8.5); NEUTROPHILS % 71.7 % (36.0-66.0); PLATELET COUNT, AUTOMATED 256 10^3/uL (150-450); RED BLOOD COUNT 3.77 10^6/uL (4.00-5.40); WHITE BLOOD COUNT 9.5 10^3/uL (4.0-10.0)
[2023-05-07 06:44] LABS: BLOOD UREA NITROGEN 26 MG/DL (9-23); CALCIUM LEVEL 8.8 MG/DL (8.3-10.6); CARBON DIOXIDE LEVEL 24 MMOL/L (20-31); CHLORIDE LEVEL 104 MMOL/L (98-107); CREATININE FOR GFR 0.79 MG/DL (0.55-1.30); GLOMERULAR FILTRATION RATE > 60.0 (>32); GLUCOSE, FASTING 105 MG/DL (74-106); POTASSIUM SERUM 4.5 MMOL/L (3.5-5.1); SODIUM LEVEL 137 MMOL/L (136-145)
[2023-05-07 07:54] VITALS: BP 118/78; TEMP 97.5; O2SAT 95
[2023-05-07] MEDS: APIXABAN 5 MG TAB (ELIQUIS) PO SCH ×2 (09:12→20:33)
[2023-05-07] MEDS: SENOKOT S TAB PO SCH ×2 (09:12→20:33)
[2023-05-07] MEDS: METOPROLOL TART 12.5 MG PER 1/2 TAB PO SCH ×2 (09:13→20:30)
[2023-05-07] MEDS: ASPIRIN 81MG ENTERIC TABLET PO SCH (09:13)
[2023-05-07] MEDS: ACETAMINOPHEN TAB 650MG DOSE (2X325MG) PO PRN (13:40)
[2023-05-07 14:00] VITALS: BP 121/74; TEMP 97.7; O2SAT 95
[2023-05-07 19:43] VITALS: BP 89/43; TEMP 97.9; O2SAT 95
[2023-05-07 20:28] VITALS: BP 112/58
[2023-05-07] MEDS: LATANOPROST 0.005% OPHTH SOLN 2.5 ML OU SCH (20:33)
[2023-05-07] MEDS: ATORVASTATIN 20 MG TAB PO SCH (20:33)
[2023-05-08 06:00] VITALS: BP 132/56; TEMP 98.2; O2SAT 96
[2023-05-08] MEDS: APIXABAN 5 MG TAB (ELIQUIS) PO SCH ×2 (08:13→21:22)
[2023-05-08] MEDS: SENOKOT S TAB PO SCH ×2 (08:13→21:23)
[2023-05-08] MEDS: ASPIRIN 81MG ENTERIC TABLET PO SCH (08:13)
[2023-05-08] MEDS: METOPROLOL TART 12.5 MG PER 1/2 TAB PO SCH ×2 (08:14→21:23)
[2023-05-08 14:00] VITALS: BP 91/57; TEMP 98.8; O2SAT 95
[2023-05-08 14:15] VITALS: BP 105/55
[2023-05-08 14:45] VITALS: BP 105/55
[2023-05-08 20:45] VITALS: BP 120/61; TEMP 98.1; O2SAT 96
[2023-05-08 21:20] VITALS: BP 142/80
[2023-05-08] MEDS: LATANOPROST 0.005% OPHTH SOLN 2.5 ML OU SCH (21:23)
[2023-05-08] MEDS: ATORVASTATIN 20 MG TAB PO SCH (21:23)
[2023-05-09 05:41] VITALS: BP 110/53; TEMP 98.3; O2SAT 95
[2023-05-09] MEDS: SENOKOT S TAB PO SCH ×2 (09:30→21:15)
[2023-05-09] MEDS: APIXABAN 5 MG TAB (ELIQUIS) PO SCH ×2 (09:30→21:15)
[2023-05-09] MEDS: ASPIRIN 81MG ENTERIC TABLET PO SCH (09:30)
[2023-05-09] MEDS: METOPROLOL TART 12.5 MG PER 1/2 TAB PO SCH ×2 (09:30→21:15)
[2023-05-09 14:00] VITALS: BP 111/50; TEMP 98.2; O2SAT 97
[2023-05-09] MEDS: ATORVASTATIN 20 MG TAB PO SCH (21:14)
[2023-05-09] MEDS: LATANOPROST 0.005% OPHTH SOLN 2.5 ML OU SCH (21:15)
[2023-05-09 21:45] VITALS: BP 117/54; TEMP 97.9; O2SAT 94
[2023-05-10 06:00] VITALS: BP 109/50; TEMP 97.8; O2SAT 96
[2023-05-10] MEDS: APIXABAN 5 MG TAB (ELIQUIS) PO SCH (08:29)
[2023-05-10] MEDS: SENOKOT S TAB PO SCH (08:29)
[2023-05-10] MEDS: ASPIRIN 81MG ENTERIC TABLET PO SCH (08:29)
[2023-05-10 08:30] VITALS: BP 116/52
[2023-05-10] MEDS: METOPROLOL TART 12.5 MG PER 1/2 TAB PO SCH (08:30)
[2023-05-10] MEDS ORDERED: QUET1TAB17 PO (10:24)
[2023-05-10] MEDS ORDERED: ELIQ5TAB PO (10:24)
[2023-05-10] MEDS ORDERED: SENN-52 PO (10:24)
[2023-05-10] MEDS ORDERED: ATOR40TA75 PO (10:24)
[2023-05-10] MEDS ORDERED: ASPI81TAEC PO (10:24)
== END 2023-05-10 11:09 | DRG 65 ==
LOC: EDBD 07:35 → M ED 07:35 → M ED INP 13:09 → ENRESERV 14:19 → M PCU 18:57 → M MSPAV 05-02 20:33
PROVIDERS: ADMIT Internal Medicine Nephrology; ATTEND Student in an Organized Health Care Education/Training Program
DX: I63.9 Cerebral infarction, unspecified (principal); N39.0 Urinary tract infection, site not specified; I48.92 Unspecified atrial flutter; I48.91 Unspecified atrial fibrillation; I10 Essential (primary) hypertension; M35.3 Polymyalgia rheumatica; B96.20 Unspecified Escherichia coli [E. coli] as the cause of diseases classified elsewhere; F02.80 Dementia in other diseases classified elsewhere, unspecified severity, without behavioral disturbance, psychotic disturbance, mood disturbance, and anxiety; G31.83 Neurocognitive disorder with Lewy bodies; R47.1 Dysarthria and anarthria; E78.5 Hyperlipidemia, unspecified; Z90.49 Acquired absence of other specified parts of digestive tract; Z98.42 Cataract extraction status, left eye; Z79.899 Other long term (current) drug therapy; Z88.0 Allergy status to penicillin; Z20.822 Contact with and (suspected) exposure to COVID-19

== ENCOUNTER → 2025-06-26 | Outpatient (REF) | payer MEDICARE ==
[~2025-06-26] MED LIST changes: +ASPI81TAEC PO; +ATOR40TA75 PO; +ELIQ5TAB PO; -FLUT50SP17 NARES; +FLUTISP NARES; +METH-1100 PO; -METH-855 PO; +QUET1TAB17 PO; +SENN-52 PO
[2025-06-26 12:00] LABS: APPEARANCE, URINE MANUAL CLOUDY (CLEAR); COLOR, URINE MANUAL YELLOW (YELLOW)
[2025-06-26 12:01] LABS: BLOOD URINE MANUAL POSITIVE (NEGATIVE)
[2025-06-26 12:02] LABS: PROTEIN, URINE MANUAL TRACE mg/dL (NEGATIVE)
[2025-06-26 12:03] LABS: BILIRUBIN, URINE MANUAL NEGATIVE (NEGATIVE); GLUCOSE, URINE (UA) MANUAL NEGATIVE (NEGATIVE); KETONE, URINE MANUAL NEGATIVE (NEGATIVE); LEUKOCYTE ESTERASE, URINE MAN TRACE (NEGATIVE); NITRITE, URINE MANUAL NEGATIVE (NEGATIVE); PH,URINE MAN 8.0 UNITS (5.0 - 7.0); SPECIFIC GRAVITY,URINE MANUAL 1.010 (1.002-1.035); UROBILINOGEN, URINE MANUAL NORMAL (NORMAL)
[2025-06-26 12:04] LABS: SQUAMOUS EPITHELIAL CELL URINE LARGE AMOUNT /hpf (SMALL AMT)
[2025-06-26 12:05] LABS: AMORPHOUS SEDIMENT, URINE MOD AMOUNT (NEGATIVE); BACTERIA, URINE SMALL AMOUNT; HYALINE CAST, URINE NONE SEEN /lpf (0-1)
== END ==
LOC: M LAB REF 11:19
PROVIDERS: ATTEND Nurse Practitioner
DX: G30.9 Alzheimer's disease, unspecified (principal)